=== PATIENT | male | born 1995 | race African-American/Black ===

== ENCOUNTER 2019-06-18 08:23 | Emergency (ER) | payer OTHER ==
[~2019-06-18] VITALS: Ht 177.8 cm; Wt 97.3 kg
[2019-06-18 08:28] VITALS: BP 118/62; TEMP 98.7
[2019-06-18 10:02] LABS: MONOSCREEN NEGATIVE
== END 2019-06-18 10:05 | disposition home or self-care (01) ==
LOC: COL.ER 08:23
PROVIDERS: Physician Assistant
DX: J11.1 Influenza due to unidentified influenza virus with other respiratory manifestations (principal); Z88.0 Allergy status to penicillin
CPT/HCPCS: J1885